=== PATIENT | male | born 1975 | race African-American/Black ===

== ENCOUNTER → 2017-06-07 | Outpatient (CLI) | payer OTHER ==
--- NOTE | 2017-06-07 16:56 | RADIOLOGY REPORT (SQ) ---
EXAM DESCRIPTION: CT SOFT TISSUE NECK WITH COMPLETED DATE/TIME: 06/07/2017 3:09 pm REASON FOR STUDY: NECK MASS (R22.1) R22.1 LOCALIZED SWELLING, MASS AND LUMP, NECK COMPARISON: Thyroid ultrasound same date TECHNIQUE: Post IV contrasted scanning from skull base through lung apices with review of bone, soft tissue and lung windows. Reconstructed coronal and sagittal MPR images reviewed. All images stored on PACS. All CT scanners at this facility use dose modulation, iterative reconstruction, and/or weight based d osing when appropriate to reduce radiation dose to as low as reasonably achievable (ALARA). [facility]: Dose Right [facility]: CareDose [facility]: Dose Right [facility]: Teradose 4D [facility]: Hoodin CONTRAST TYPE AND DOSE: contrast/concentration: Isovue 370.00 mg/ml; Total Contrast Delivered: 75.0 ml; Total Saline Delivered: 55.0 ml RENAL FUNCTION: Creatinine 1.0 RADIATION DOSE: 41 mGy . LIMITATIONS: Patient is morbidly obese. The scanner automatically shut down at the level of the cla vicular heads in shoulders, as the patient's shoulders abutted the gantry. Patient was repositioned slightly, and imaging through the thoracic inlet was achieved however this was without the IV contras t bolus. Please note that IV contrast can interfere with radioiodide uptake and scan for 6 weeks. FINDINGS: The right lobe thyroid gland is massively enlarged, at least 7 cm craniocaudad x 6 cm AP x 6 cm transverse. The left lobe thyroid is massively enlarged, 8 cm craniocaudad x 6 cm AP x 5.5 cm transverse. Because of technical limitations is difficult to discern whether the tail of substernal tissue extend s inferiorly off the left lobe thyroid into the anterior mediastinum. There is no airway compromise or definite mass effect on the upper esophagus. SKULL BASE: Inferior brain parenchyma unremarkable MAJOR SALIVARY GLANDS: No solid or cystic masses. No inflammatory changes. LYMPHADENOPATHY: Diffuse cervical adenopathy is present with multiple 1 cm short axis lymph nodes thr oughout the carotid spaces, posterior triangles, submandibular regions and supraclavicular regions. MUCOSAL MASSES OR ASYMMETRY: No mucosal masses or asymmetry. LARYNX/CORDS: No abnormal findings. VASCULAR STRUCTURES: The major vessels are patent. LUNG APICES: Clear. BONES: Intact. THYROID: As above PARANASAL SINUSES: Complete opacification of the left maxillary sinus with dried secretions in the ce ntral portion of the sinus. OTHER: No other significant finding. IMPRESSION: Massively enlarged heterogeneous thyroid gland likely represents a multinodular goiter. Because of technical factors, it is difficult to discern whether there is a tail of tissue extending from the inferior left lobe thyroid into the anterior mediastinum TECHNICAL DOCUMENTATION: JOB ID: [id number] Quality ID # [id number]: Final reports with documentation of one or more dose reduction techniques (e.g., Au tomated exposure control, adjustment of the mA and/or kV according to patient size, use of iterative reconstruction technique) 2010 [employer]- All Rights Reserved Reading location - IP/workstation name: [facility]
--- NOTE | 2017-06-07 16:57 | RADIOLOGY REPORT (SQ) ---
EXAM DESCRIPTION: U/S THYROID/SFT TISS HD NECK COMPLETED DATE/TIME: 06/07/2017 3:35 pm REASON FOR STUDY: NECK MASS (R22.1) R22.1 LOCALIZED SWELLING, MASS AND LUMP, NECK COMPARISON: CT soft tissue neck with IV contrast same day TECHNIQUE: Dynamic and static castro-scale images acquired of the thyroid gland. Selected additional c olor/power Doppler images recorded. All images stored to PACS. LIMITATIONS: None. FINDINGS: Diffusely enlarged thyroid gland which is heterogeneous with cystic and solid areas. Coar se curvilinear calcifications are present in the right lobe thyroid. Overall, the right lobe measures 8 x 6 x 5 cm in size, left lobe 7 x 6 x 5 cm size. IMPRESSION: Diffusely enlarged heterogeneous thyroid likely representing a multinodular goiter TECHNICAL DOCUMENTATION: JOB ID: [id number] [employer]- All Rights Reserved Reading location - IP/workstation name: [email or web address]
== END ==
LOC: RAD 14:12
PROVIDERS: ATTEND Otolaryngology
DX: E04.9 Nontoxic goiter, unspecified (principal)
CPT/HCPCS: 70491; 76536; 82565